=== PATIENT | male | born 1995 | race Hispanic/Latino ===

== ENCOUNTER 2024-07-31 06:33 | Emergency (ER) | payer OTHER, SELFPAY ==
[2024-07-31 06:40] VITALS: BP 147/100
--- NOTE | 2024-07-31 06:46 | ED.GENMED ---
History of Present Illness
General
Chief Complaint: Ear Problem
Time Seen by Provider: 07/31/24 06:45
History of Present Illness
History of Present Illness:
TIME OF INITIAL ENCOUNTER: 6:50 AM
HPI: The patient presents with right ear pain associated with discharge. 2 months ago the patient was seen at a clinic in [place] after he had a part of a Q-tip lodged in the right ear canal. He was placed on drops at that time. He also has
some vague weakness as well. He does not regularly go to doctors. He had been using peroxide.
EXAM:
GENERAL: Well appearing in no distress
HEENT: Moist oral mucosa, there is some white debris in the right ear canal and mild tenderness at the right tragus, there is no evidence for malignant otitis externa
CARDIOVASCULAR: No chest wall tenderness
PULMONARY: No respiratory distress
ABDOMEN: Soft with no peritoneal signs, no tenderness
NEUROLOGIC: Excellent strength all extremities, no coordination deficits
PSYCHIATRIC: Appropriate mental status, normal insight and judgement
EXTREMITIES: Nontender, no edema, moves all extremities equally
SKIN: No rash, no lesions
NUMBER AND COMPLEXITY OF PROBLEMS ADDRESSED AT THE ENCOUNTER
� Chronic conditions affecting care: No significant past medical history
� Acute Exacerbation and/or Progression of Chronic Illness: This is an acute but recurring problem
� Differential Diagnosis includes: Otitis externa, otitis media, foreign body, hypoglycemia, hypertensive urgency
AMOUNT AND/OR COMPLEXITY OF DATA TO BE REVIEWED AND ANALYZED
� I performed an independent evaluation of and my interpretation is:
EKG:
CT:
X-rays:
Laboratory Studies: Blood sugars 93
Other:
� Review of other/old records: I reviewed [facility], no old records available for review
� Clinical information was obtained by an independent historian: I spoke to the at bedside who translated without any difficulty
� Prescriptions/Medications Considered but not given:
� Further testing considered but not performed:
RISK OF COMPLICATIONS AND/OR MORBIDITY OR MORTALITY OF PATIENT MANAGEMENT
� Social determinants of health affecting care: Lives at home with
� Discussion with other providers:
� Escalation of care including admission/observation vs risk of discharge considered: Patient does have some evidence of otitis externa and I have placed him on Cortisporin otic. He reports generalized weakness, however is very
well-appearing with relatively unremarkable vital signs other than some mild hypertension. I have given him the contact information for the [facility]. His blood sugar is normal.
ANY OTHER UPDATES:
Phy Exam
Physical Exam
Physical Exam:
See HPI
Course
Orders/Labs/Results
Orders:
Orders
07/31/24 07:00
Bedside Glucose- Treatment ONCE
Neomycin/Polymyxin/Hc [Cortisporin Otic Suspension] See Dose Instructions OTIC NOW STA
Vital Signs
Initial and Last Documented VS:
Initial Vital Signs
Temp Pulse Resp BP Pulse Ox
98.0 F 68 16 147/100 99
07/31/24 06:40 07/31/24 06:40 07/31/24 06:40 07/31/24 06:40 07/31/24 06:40
Last Documented Vital Signs
Temp Pulse Resp BP Pulse Ox
98.0 F 68 16 147/100 99
07/31/24 06:40 07/31/24 06:40 07/31/24 06:40 07/31/24 06:40 07/31/24 06:40
*Critical Care Note
Total Time (30-74mins, 75-104mins- exclusive of procedures): Not Applicable
ED Attending Note
-
Portions of this chart may have been created with voice recognition software.� Occasional wrong word or��sound alike� substitutions may have occurred due to the inherent limitations of voice recognition software.
Discharge Plan
Departure
Patient Disposition: Home (Routine Discharge)
Date of Disposition: 07/31/24
Time of Disposition: 07:07
Patient with high blood pressure during this ER visit?: Yes
Discharge Problem:
Acute Otitis Externa
Instructions: Outer Ear Infection ED, BLOOD PRESSURE
Prescriptions:
No Action
No Current Medications
0
Referrals:
[facility]] - Follow up in 5-7 days
Activity Restrictions/Additional Instructions:
Use 4 drops to the right ear 4 times per day not to exceed 10 days. I have placed you on these drops to help treat infection and it also has a steroid in it to help with decrease inflammation/pain. Your blood pressure was high upon arrival at
147/100�[facility] Here blood sugar is normal at 93.
Interventions
Interventions:
*Risk Screen - Suicide Last Done: 07/31/24 06:40
*Neglect/Abuse Screening Last Done: 07/31/24 06:40
*ED COVID-19 Vaccine History Last Done: 07/31/24 06:40
Discharge Date and Time
Print Language: MARSHALLESE
[2024-07-31 07:02] LABS: Glucose - Point of Care 93 mg/dl (70-99)
[2024-07-31] MEDS: CORTISPORIN OTIC SUSPENSION 4 DROP OTIC (07:07)
[2024-07-31 07:31] VITALS: BP 156/99
== END 2024-07-31 07:41 | disposition home or self-care (01) ==
LOC: EMR 06:33
PROVIDERS: EMERGENCY PHYSICIAN Emergency Medicine
DX: H60.501 Unspecified acute noninfective otitis externa, right ear (principal); W44.8XXA Other foreign body entering into or through a natural orifice, initial encounter; I10 Essential (primary) hypertension
CPT/HCPCS: 99282; 82962